=== PATIENT | female | born 1930 | race Caucasian/White ===

== ENCOUNTER → 2018-02-04 | Outpatient (CLI) | payer MEDICARE, OTHER ==
[~2018-02-04] MED LIST: ALEVE220 MG PO; BIOTENE1000 ML MM; FLEXERIL PO; FOLIC ACID1 MG PO; IBUPROFEN 800800 MG PO; JANUVIA50 MG PO; LIDODERM 5%1 PATC1 TRANSDERM; NORVASC5 MG PO; PLAVIX 75 MG TA75 M1 PO; ULTRAM 50MG TAB50 MG PO
== END ==
LOC: M.RAD 09:07
DX: Z12.31 Encounter for screening mammogram for malignant neoplasm of breast (principal); E11.9 Type 2 diabetes mellitus without complications; I10 Essential (primary) hypertension

== ENCOUNTER → 2018-02-22 | Outpatient (CLI) | payer MEDICARE, OTHER | LOC: M.RAD 12:45 | DX: Z78.0 Asymptomatic menopausal state (principal); M85.89 Other specified disorders of bone density and structure, multiple sites; I10 Essential (primary) hypertension; E11.9 Type 2 diabetes mellitus without complications; Z90.710 Acquired absence of both cervix and uterus ==

== ENCOUNTER → 2018-07-25 | Outpatient (CLI) | payer MEDICARE, OTHER ==
--- NOTE | 2018-07-25 16:18 | 2DMMODE ---
[place] [address] 2 D/M-MODE ECHOCARDIOGRAM Name: CM ARAUJO Room: [facility]#: [id number] Admission: 07/25/18 Attend Phys: Tripp Hernandez MD Discharge: Date of : 34 Date of Service: 07/25/18 1617 Report #: [id number] THIS REPORT FOR: //name// APPROVED REPORT Study performed: 07/25/2018 15:02:43 EXAM: Comprehensive 2D, Doppler, and color-flow Echocardiogram Patient Location: Out-Patient BSA: 1.91 HR: 51 bpm BP: 152/80 mmHg Other Information Study Quality: Good Indications Abnormal ECG CAD 2D Dimensions IVSd: 14.91 (7-11mm) LVOT Diam: 20.00 (18-24mm) LVDd: 34.83 mm PWd: 9.65 (7-11mm) Ascending Ao: 30.93 (22-36mm) LVDs: 22.87 (25-40mm) Aortic Root: 24.38 mm Volumes Left Atrial Volume (Systole) LA ESV Index: 16.10 mL/m2 Aortic Valve AoV Peak Vignesh.: 1.61 m/s AO Peak Gr.: 10.33 mmHg LVOT Max P.43 mmHg AO Mean Gr.: 5.52 mmHg LVOT Mean P.50 mmHg LVOT Max V: 1.05 m/s AO V2 VTI: 39.13 cm LVOT Mean V: 0.74 m/s BENJI (VTI): 2.51 cm2 LVOT V1 VTI: 31.22 cm Mitral Valve E/A Ratio: 0.74 MV Decel. Time: 323.22 ms MV E Max Vignesh.: 0.76 m/s MV PHT: 93.73 [place] [address] 2 D/M-MODE ECHOCARDIOGRAM Name: CM ARAUJO Room: [facility]#: [id number] Admission: 07/25/18 Attend Phys: Tripp Hernandez MD Discharge: Date of : 34 Date of Service: 07/25/18 1617 Report #: [id number] MVA (PHT): 2.35 cm2 TDI E/Lateral E': 9.50 E/Medial E': 8.44 Medial E' Vignesh.: 0.09 m/s Lateral E' Vignesh.: 0.08 m/s Pulmonary Valve PV Peak Vignesh.: 0.85 m/s PV Peak Gr.: 2.89 mmHg Tricuspid Valve RAP Estimate: 5.00 mmHg TR Peak Gr.: 22.26 mmHg RVSP: 27.26 mmHg PA Pressure: 27.26 mmHg Left Ventricle The left ventricle is normal size. There is normal LV segmental wall motion. Mild concentric left ventricular hypertrophy. Left ventricular systolic function is normal. The left ventricular ejection fraction is within the normal range. LVEF is 60-65%. Grade I - abnormal relaxation pattern. Right Ventricle The right ventricle is normal size. The right ventricular systolic function is normal. Atria The left atrium size is normal. The right atrium size is normal. Aortic Valve The aortic valve is normal in structure. No aortic regurgitation is present. There is no aortic valvular stenosis. Mitral Valve The mitral valve is normal in structure. There is no mitral valve regurgitation noted. No evidence of mitral valve stenosis. Tricuspid Valve The tricuspid valve is normal in structure. Mild tricuspid regurgitation. Pulmonic Valve The pulmonary valve is normal in structure. There is no pulmonic [place] [address] 2 D/M-MODE ECHOCARDIOGRAM Name: CM ARAUJO Room: [facility]#: [id number] Admission: 07/25/18 Attend Phys: Tripp Hernandez MD Discharge: Date of : 34 Date of Service: 07/25/18 1617 Report #: [id number] Great Vessels The aortic root is normal in size. IVC is normal in size and collapses >50% with inspiration. Pericardium There is no pericardial effusion. <Conclusion> The left ventricle is normal size. Mild concentric left ventricular hypertrophy. Left ventricular systolic function is normal. The left ventricular ejection fraction is within the normal range. LVEF is 60-65%. Grade I - abnormal relaxation pattern. The right ventricle is normal size. The left atrium size is normal. The aortic valve is normal in structure. The mitral valve is normal in structure. The tricuspid valve is normal in structure. IVC is normal in size and collapses >50% with inspiration. There is no pericardial effusion. There is normal LV segmental wall motion. <ELECTRONICALLY SIGNED> By: Harlan Perez MD, FACC 07/25/18 1617 1617 [id number] Harlan Perez MD, FACC /INF
== END ==
LOC: M.CRD 07-15 16:16
DX: I07.1 Rheumatic tricuspid insufficiency (principal); I25.10 Atherosclerotic heart disease of native coronary artery without angina pectoris; G45.9 Transient cerebral ischemic attack, unspecified; I69.398 Other sequelae of cerebral infarction; R94.31 Abnormal electrocardiogram [ECG] [EKG]